=== PATIENT | female | born 1935 | race Caucasian/White ===

== ENCOUNTER → 2016-12-06 | Outpatient (CLI) | payer MEDICARE, OTHER | END | disposition home or self-care (01) | LOC: RAD.S 16:00 | DX: R07.89 Other chest pain (principal); R05 Cough; C64.1 Malignant neoplasm of right kidney, except renal pelvis; C78.7 Secondary malignant neoplasm of liver and intrahepatic bile duct; E03.2 Hypothyroidism due to medicaments and other exogenous substances; I10 Essential (primary) hypertension ==

== ENCOUNTER → 2016-12-22 | Outpatient (CLI) | payer MEDICARE, OTHER | END | disposition home or self-care (01) | LOC: RAD.S 13:30 | DX: R10.2 Pelvic and perineal pain (principal); C64.1 Malignant neoplasm of right kidney, except renal pelvis; C78.7 Secondary malignant neoplasm of liver and intrahepatic bile duct; E03.2 Hypothyroidism due to medicaments and other exogenous substances; I10 Essential (primary) hypertension; M89.8X9 Other specified disorders of bone, unspecified site ==